=== PATIENT | female | born 2000 | race Caucasian/White ===

== ENCOUNTER → 2022-02-02 11:36 | Outpatient (BNVA) | payer SELFPAY | PROVIDERS: Family Provider Electrodiagnostic Medicine; PCP Family Medicine; Visit Provider Family Medicine | DX: Z51.81 Encounter for therapeutic drug level monitoring (principal); R30.0 Dysuria | CPT/HCPCS: 80053; 87086 ==

== ENCOUNTER → 2022-10-01 09:49 | Outpatient (BNVA) | payer SELFPAY | PROVIDERS: Family Provider Electrodiagnostic Medicine; PCP Family Medicine; Visit Provider Family Medicine | DX: R19.7 Diarrhea, unspecified (principal); D64.9 Anemia, unspecified; Z51.81 Encounter for therapeutic drug level monitoring; R30.0 Dysuria; K29.70 Gastritis, unspecified, without bleeding | CPT/HCPCS: 80053; 83540; 85025 ==

== ENCOUNTER → 2023-06-29 09:02 | Outpatient (BNVA) | payer BC, SELFPAY | PROVIDERS: Family Provider Electrodiagnostic Medicine; PCP Family Medicine; Visit Provider Family Medicine | DX: Z51.81 Encounter for therapeutic drug level monitoring (principal); E55.9 Vitamin D deficiency, unspecified; Z13.220 Encounter for screening for lipoid disorders; R53.81 Other malaise; R53.83 Other fatigue | CPT/HCPCS: 80053; 80061; 82306; 84443; 85025 ==

== ENCOUNTER → 2023-10-25 09:34 | Outpatient (BNVA) | payer MEDICAID, SELFPAY | PROVIDERS: Family Provider Electrodiagnostic Medicine; PCP Family Medicine; Referring Provider Family Medicine; Visit Provider Internal Medicine | DX: E28.2 Polycystic ovarian syndrome (principal); N94.6 Dysmenorrhea, unspecified; L70.9 Acne, unspecified; Z79.84 Long term (current) use of oral hypoglycemic drugs | CPT/HCPCS: 82627; 83036; 84403; 99204 ==

== ENCOUNTER 2023-11-14 08:27 | Outpatient (CLI) | payer MEDICAID, SELFPAY ==
--- NOTE | 2023-11-14 08:45 | US_ITS ---
WS: [id number] US pelvic complete* 31101 HISTORY: PCOS COMPARISON: None available. Uterus: 6.5 cm x 4.0 cm x 2.7 cm. Normal size anteverted uterus. No fibroid or mass. Endometrium: 0.6 cm. Normal. Right ovary: 2.4 cm x 2.0 cm x 2.5 cm. Normal size and vascularity, no cystic or solid masses. Left ovary: 2.9 cm x 1.7 cm x 2.2 cm. Normal size and vascularity, no cystic or solid masses. Small amount of fluid in the cul-de-sac to the RIGHT. May be a small amount of complex hemorrhage. US/US pelvic complete* 13498 IMPRESSION: 1. Patient refused transvaginal ultrasound imaging. Without transvaginal imagi ng sensitivity is decreased. 2. Ovaries are not enlarged. 3. Normal endometrium. 4. Small amount of complex free fluid in the cul-de-sac. May be from a rupture d ovarian cyst.
== END 2023-11-14 08:28 | disposition home or self-care (01) ==
LOC: RAD 08:27
PROVIDERS: Family Provider Electrodiagnostic Medicine; PCP Family Medicine; Visit Provider Internal Medicine
DX: E28.2 Polycystic ovarian syndrome (principal); N94.6 Dysmenorrhea, unspecified
CPT/HCPCS: 76856

== ENCOUNTER → 2024-07-03 10:28 | Outpatient (BNVA) | payer MEDICAID, SELFPAY | PROVIDERS: Family Provider Electrodiagnostic Medicine; PCP Family Medicine; Visit Provider Family Medicine | DX: Z51.81 Encounter for therapeutic drug level monitoring (principal); E55.9 Vitamin D deficiency, unspecified; R53.81 Other malaise; R53.83 Other fatigue | CPT/HCPCS: 80053; 82306; 83550; 85025 ==

== ENCOUNTER → 2024-09-24 11:27 | Outpatient (BNVA) | payer OTHER, MEDICAID, SELFPAY | PROVIDERS: Family Provider Electrodiagnostic Medicine; PCP Family Medicine; Referring Provider Family Medicine; Visit Provider Nurse Practitioner Women's Health | DX: Z12.4 Encounter for screening for malignant neoplasm of cervix (principal) | CPT/HCPCS: 88175 ==

== ENCOUNTER → 2024-10-04 13:27 | Outpatient (BNVA) | payer OTHER, MEDICAID, SELFPAY | PROVIDERS: Family Provider Electrodiagnostic Medicine; PCP Family Medicine; Visit Provider Nurse Practitioner Women's Health | DX: N83.202 Unspecified ovarian cyst, left side (principal) | CPT/HCPCS: 76830 ==

== ENCOUNTER → 2024-11-01 16:19 | Outpatient (BNVA) | payer OTHER, MEDICAID, SELFPAY | PROVIDERS: Family Provider Electrodiagnostic Medicine; PCP Family Medicine; Visit Provider Internal Medicine | DX: R53.81 Other malaise (principal); R53.83 Other fatigue | CPT/HCPCS: 83540 ==

== ENCOUNTER 2025-05-23 01:27 | Emergency (ER) | payer OTHER, MEDICAID, SELFPAY ==
[2025-05-23 01:32] VITALS: BP 118/81; PULSE 82; RESP 16; TEMP 36.4; O2SAT 100; BMI 32.4
--- OUTSIDE RECORDS SUMMARY | 2025-05-23 01:42 | XMS_ITS | Clinical Summary ---
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 Active Active Problems Problem Noted Date Diagnosed Date Dental impaction 12/06/2015 Lactose intolerance 03/17/2010 Allergic rhinitis 03/17/2010 Abdominal pain, generalized 03/17/2010 Obese 03/17/2010 Hives 09/02/2009 Asthma 09/02/2009 Eczema 09/02/2009 Immunizations Immunization Administration Dates Next Due Hepatitis A Vaccine Ped Adol IM 2 Dose [facility] 07/21 MMR Vaccine SQ [facility] 07/21/2009 Family History Medical History Relation Name Comments Healthy Father Healthy Maternal Grandfather Healthy Maternal Grandmother Healthy Mother Healthy Paternal Grandfather Heart Disease Paternal Grandmother Hypertension Paternal Grandmother Relation Name Status Comments Father Maternal Grandfather Maternal Grandmother Mother Paternal Grandfather Paternal Grandmother Social History Tobacco Use Types Packs/Day Years Used Date Smoking Tobacco: Never Alcohol Use Standard Drinks/Week Comments No 0 (1 standard drink = 0.6 oz pur e alcohol) Comments No Sex and Gender Information Value Date Recorded Sex Assigned at Not on file 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 Gender Identity Not on file Sexual Orientation Not on file Last Filed Vital Signs Vital Sign Reading Time Taken Comments Blood Pressure 126/76 02/06/2016 8:49 AM CDT Pulse 67 02/06/2016 8:49 AM CDT Temperature 36.2 C (97.1 F) 12/30/2010 8:11 AM CDT Respiratory Rate 18 12/30/2010 8:11 AM CDT Oxygen Saturation 100% 02/06/2016 8:49 AM CDT Inhaled Oxygen Concentration - - Weight 77.1 kg (170 lb) 02/06/2016 8:49 AM CDT Height 165.1 cm (5' 5 ) 12/04/2015 2:49 PM CDT Body Mass Index - - Plan of Treatment Health Maintenance Due Date Last Done Comments HPV VACCINES (1 - 3-dose series) 2015 DTAP/TDAP/TD VACCINES (1 - Tdap) 2019 HEPATITIS B VACCINES (1 of 3 - 19+ 3-dose series) 10/2018 CERVICAL CANCER SCREENING 2021 HPV/Cotest (21-29) 2021 PAP SMEAR 2021 INFLUENZA VACCINE (#1) 2025 Insurance [place] Member Subscriber Plan / Payer (Ef fective 2009-Present) Name:Larissa Mack Relation to Subscriber:Self Name:Larissa Mack Payer ID:[id number] Group ID:Not on file Type:Medicaid Address: [address] Member Subscriber Plan / Payer (Ef fective 2015-Present) Name:Larissa aMck Relation to Subscriber:Child Name:DARRELL TREJO Date of :1976 (Home) Address: [address] [place] [address] Payer ID:Not on file Type:Blue Cross Address: [address] MEDICAID [place] Member Subscriber Plan / Payer (Ef fective 2009-Present) Name:Larissa Mack Relation to Subscriber:Self Name:Larissa Mack Payer ID:[id number] Group ID:Not on file Type:Medicaid Address: [address] Member Subscriber Plan / Payer (Ef fective 2015-Present) Name:Larissa Mack Relation to Subscriber:Child Name:DARRELL TREJO Date of :1976 (Home) Address: [address] [place] [id number] Payer ID:Not on file Type:Blue Cross Address: [facility] [id number] [address] MEDICAID DENTAL
--- OUTSIDE RECORDS SUMMARY | 2025-05-23 01:42 | XMS_ITS | Clinical Summary ---
Author Organization [facility] Address [address] [place] [address] Dr. 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 12/04/2015 Active Active Problems Problem Noted Date Diagnosed Date Dental impaction 12/06/2015 Lactose intolerance 03/17/2010 Obese 03/17/2010 Abdominal pain, generalized 03/17/2010 Allergic rhinitis 03/17/2010 Hives 09/02/2009 Asthma 09/02/2009 Eczema 09/02/2009 Immunizations Immunization Administration Dates Next Due Hepatitis A Vaccine Ped Adol IM 2 Dose [facility] 07/21 MMR Vaccine SQ [facility] 07/21/2009 Family History Medical History Relation Name [...] = 0.6 oz pur e alcohol) Comments Unknown Sex and Gender Information Value Date Recorded Sex Assigned at Not on file 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
[2025-05-23 01:54] LABS: Hematocrit 36.4 % (36-47); Hemoglobin 11.90 g/dL (11.27-16.99); Mean Corpuscular HGB Conc 32.7 g/dL (30-55); Mean Corpuscular Hemoglobin 27.0 pg (27-33); Mean Corpuscular Volume 82.5 fl (85-98); Nucleated Red Blood Cells % 0 %; Platelet Count 302 10^3/cmm (157-399); Red Blood Count 4.41 10^6/uL (3.85-5.65); White Blood Count 8.94 10^3/uL (3.29-11.43)
[2025-05-23 02:21] LABS: Alanine Aminotransferase 13 U/L (0-33); Albumin Level 4.4 g/dL (3.5-5.2); Alkaline Phosphatase 62 U/L (35-105); Anion Gap 15.8 (5-19); Aspartate Amino Transferase 14 U/L (0-32); Blood Urea Nitrogen 12 mg/dL (6-20); Calcium 9.3 mg/dL (8.5-10.5); Carbon Dioxide 23 mmol/L (22-29); Chloride 102 mmol/L (98-107); Globulin 2.7 g/dL (1.3-4.6); Glucose 106 mg/dL (65-115); Osmolality Calculated 284 mOsm/kg (285-295); Potassium 3.8 mmol/L (3.5-5.1); Sodium 137 mmol/L (136-145); Total Protein 7.1 g/dL (6.6-8.7)
[2025-05-23] MEDS: ondansetron 2 mg/ML SDV 2 mL 4 MG IVP (02:40)
--- NOTE | 2025-05-23 02:42 | W.ED.PREGNAN ---
HPI - General: Chief complaint: OB/Uterine Contractions Stated complaint: 5 Wks Preg\Cramping Time Seen by Provider: 05/23/25 01:34 History of Present Illness: 24-year-old female presents emergency room she is at estimated 5 weeks gestation. She is having intense crampy pelvic cramping and pain no vaginal discharge or bleeding lasted for about 20 minutes its resolved she has not had any further problems. She had some light spotting a few days when she first found she is but no recurrences Associated symptoms: Deny abdominal pain or dysuria Related Data Home Medications ?Medication ?Instructions ?Recorded ?Confirmed omeprazole 20 mg capsule,delayed 20 mg PO DAILY 02/14/22 10/15/24 release Previous Rx's ?Medication ?Instructions ?Recorded ferrous sulfate 325 mg (65 mg 325 mg PO DAILY #30 tabs 03/23/22 iron) tablet cholecalciferol (vitamin D3) 25 25 mcg PO DAILY #30 tabs 06/30/23 mcg (1,000 unit) tablet potassium chloride 10 mEq 10 meq PO DAILY #30 tabs 06/30/23 tablet,extended release (Klor-Con) cetirizine 10 mg tablet (Zyrtec) 10 mg PO DAILY #30 tabs 02/25/24 fluticasone propionate 50 2 spray intranasal DAILY #16 grams 02/25/24 mcg/actuation nasal spray,suspension (Flonase Allergy Relief) cholecalciferol (vitamin D3) 50 50 mcg PO DAILY #30 caps 07/12/24 mcg (2,000 unit) capsule nitrofurantoin 100 mg PO Q12H 7 days #14 caps 03/11/25 monohydrate/macrocrystals 100 mg capsule (Macrobid) ondansetron HCl 4 mg tablet 4 mg PO Q8H PRN nausea and 04/23/25 vomiting #30 tabs promethazine 25 mg tablet 25 mg PO Q6H PRN nausea and 05/23/25 vomiting #20 tabs Allergies Allergy/AdvReac Type Severity Reaction Status Date / Time No Known Allergies Allergy Verified 09/24/24 09:52 Review of Systems Const: Denies: fever(s) or chills Card: Denies: chest pain Resp: Denies: dyspnea GI: Denies: abdominal pain : Denies: dysuria, urinary frequency or urinary urgency Musc: Denies: neck pain or back pain Skin/Breast: Denies: rash PFSH ED PFSH: Medical History Anxiety Surgical History No pertinent past surgical history Family History Denies family history of Colon cancer Ovarian cancer Diabetes Breast cancer Hypertension Uterine cancer Thyroid disease Stroke Social History Smoking and tobacco/nicotine status: never used tobacco/nicotine Alcohol intake: never Substance/Drug Use: never Additional social history: 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 Physical Exam Const: ORIENTATION/CONSCIOUSNESS: Yes awake HENMT: COMMON NORMALS: normocephalic, atraumatic and hearing grossly normal bilaterally HEAD & SCALP: normocephalic and atraumatic Resp: COMMON NORMALS: normal respiratory effort, No retractions, No use of accessory muscles and clear to auscultation bilaterally AUSCULTATION: clear to auscultation bilaterally Cardio: COMMON NORMALS: regular rate, regular rhythm and No murmurs present (Cardio) RATE: regular rate RHYTHM: regular rhythm GI: COMMON NORMALS: Soft to palpation and No hepatosplenomegaly present AUSCULTATION: Yes normoactive bowel sounds PALPATION: Yes Soft to palpation, No Tenderness to palpation present (GI), No Guarding due to palpation present (GI) and Yes No hepatosplenomegaly present Extremity: COMMON NORMALS: normal to inspection, capillary refill normal, no clubbing, cyanosis or edema, no calf tenderness and no pedal edema Skin: COMMON NORMALS: no rashes or lesions noted GENERAL SKIN EXAM: no rashes or lesions noted Course Vital Signs: Vital signs: Vital Signs Temperature 97.6 F 05/23/25 01:32 Pulse Rate 82 05/23/25 01:32 Respiratory Rate 16 05/23/25 01:32 Blood Pressure 118/81 05/23/25 01:32 Pulse Oximetry 100 05/23/25 01:32 Oxygen Delivery Me thod Room Air 05/23/25 01:32 MDM - OB/Uterine Contractions Medical Decision Making Medical decision making Social determinants: Good spousal support, spouse present at the visit with her I reviewed the patient's medical record. I reviewed the patient's current home meds Alternate historians: None Differential diagnosis: Cystitis miscarriage from ligament pain pelvic cramping of Lab Review: Labs reviewed beta-hCG as anticipated. No other significant findings noted. Imaging: None Assessment of risk: Level of risk: Low Hospitalization considerations: No emergent condition requiring consideration for hospitalization Reexamination: Stable patient states symptoms have resolved Assessment and plan: Cramping typical of early . No cystitis no significant vaginal bleeding. Recommend continue to follow-up with her OB as an outpatient return if develops dysuria urgency or frequency or vaginal bleeding Lab Data 05/23/25 01:44 05/23/25 01:44 Laboratory Results WBC 8.94 10^3/uL (3.29-11.43) 05/23/25 01:44 RBC 4.41 10^6/uL (3.85-5.65) 05/23/25 01:44 Hgb 11.90 g/dL (11.27-16.99) 05/23/25 01:44 Hct 36.4 % (36-47) 05/23/25 01:44 MCV 82.5 fl (85-98) L 05/23/25 01:44 MCH 27.0 pg (27-33) 05/23/25 01:44 MCHC 32.7 g/dL (30-55) 05/23/25 01:44 RDW 13.3 % (12.1-15.1) 05/23/25 01:44 Plt Count 302 10^3/cmm (157-399) 05/23/25 01:44 MPV 9.2 fL (7.4-10.4) 05/23/25 01:44 Neut % (Auto) 40.5 % 05/23/25 01:44 Lymph % (Auto) 50.4 % 05/23/25 01:44 [place] % (Auto) 7.3 % 05/23/25 01:44 Eos % (Auto) 1.2 % 05/23/25 01:44 Baso % (Auto) 0.4 % 05/23/25 01:44 Neut # (Auto) 3.61 10^3/uL (1.8-7.7) 05/23/25 01:44 Lymph # (Auto) 4.5 10^3/uL (0.8-4.8) 05/23/25 01:44 [place] # (Auto) 0.7 10^3/uL (0.2-0.9) 05/23/25 01:44 Eos # (Auto) 0.1 10^3/uL (0.0-0.8) 05/23/25 01:44 Baso # (Auto) 0.0 10^3/uL (0.0-0.1) 05/23/25 01:44 Nucleated RBC % (auto) 0 % 05/23/25 01:44 Nucleated RBCs # 0.0 /100WBC 05/23/25 01:44 Sodium 137 mmol/L (136-145) 05/23/25 01:44 Potassium 3.8 mmol/L (3.5-5.1) 05/23/25 01:44 Chloride 102 mmol/L (98-107) 05/23/25 01:44 Carbon Dioxide 23 mmol/L (22-29) 05/23/25 01:44 Anion Gap 15.8 (5-19) 05/23/25 01:44 BUN 12 mg/dL (6-20) 05/23/25 01:44 Creatinine 0.5 mg/dL (0.5-0.9) 05/23/25 01:44 GFR Calculation 151.6 mL/min (90-130) H 05/23/25 01:44 Glucose 106 mg/dL (65-115) 05/23/25 01:44 Calculated Osmolality 284 mOsm/kg (285-295) L 05/23/25 01:44 Calcium 9.3 mg/dL (8.5-10.5) 05/23/25 01:44 Total Bilirubin 0.3 mg/dL (0.15-1.2) 05/23/25 01:44 AST 14 U/L (0-32) 05/23/25 01:44 ALT 13 U/L (0-33) 05/23/25 01:44 Alkaline Phosphatase 62 U/L (35-105) 05/23/25 01:44 Total Protein 7.1 g/dL (6.6-8.7) 05/23/25 01:44 Albumin 4.4 g/dL (3.5-5.2) 05/23/25 01:44 Globulin 2.7 g/dL (1.3-4.6) 05/23/25 01:44 Ser , Semi-Qnt 3984.00 mIU/mL 05/23/25 01:44 Urine Color Yellow (Yellow) 05/23/25 02:44 Urine Appearance Clear (CLEAR) 05/23/25 02:44 Urine pH 6.0 (5-7) 05/23/25 02:44 Ur Specific [place] 1.027 (1.005-1.030) 05/23/25 02:44 Urine Protein Trace (Negative) A 05/23/25 02:44 Urine Glucose (UA) Negative (Normal) 05/23/25 02:44 Urine Ketones Trace (Negative) 05/23/25 02:44 Urine Blood 1+ (Negative) A 05/23/25 02:44 Urine Nitrate Negative (Negative) 05/23/25 02:44 Urine Bilirubin Negative (Negative) 05/23/25 02:44 Urine Urobilinogen 1.0 mg/dL (Negative) 05/23/25 02:44 Ur Leukocyte Esterase Negative (Negative) 05/23/25 02:44 Urine RBC 11-20 /hpf (0-2) H 05/23/25 02:44 Urine WBC 0-5 /hpf (0-5) 05/23/25 02:44 Ur Squamous Epith Cells 0-5 /hpf (0-5) 05/23/25 02:44 Amorphous Sediment Not Reportable 05/23/25 02:44 Urine Bacteria None seen /hpf (NONE) 05/23/25 02:44 Hyaline Casts 0.81 /lpf 05/23/25 02:44 Urine Mucus 1+ /hpf 05/23/25 02:44 Rho(D) Type Rh positive 05/23/25 01:44 No radiology studies performed this visit Discharge Plan Discharge Patient Disposition: Home Clinical Impression: Pelvic cramping in antepartum period, First trimester Condition: Stable Prescriptions: New promethazine 25 mg tablet 25 mg PO Q6H PRN (Reason: nausea and vomiting) Qty: 20 0RF No Action omeprazole 20 mg capsule,delayed release(DR/EC) 20 mg PO DAILY fluticasone propionate [Flonase Allergy Relief] 50 mcg/actuation spray,suspension 2 spray intranasal DAILY Qty: 16 0RF Rx Instructions: administer into each nostril cetirizine [Zyrtec] 10 mg tablet 10 mg PO DAILY Qty: 30 0RF ferrous sulfate 325 mg (65 mg iron) tablet 325 mg PO DAILY Qty: 30 6RF potassium chloride [Klor-Con 10] 10 mEq tablet extended release 10 meq PO DAILY Qty: 30 6RF cholecalciferol (vitamin D3) 25 mcg (1,000 unit) tablet 25 mcg PO DAILY Qty: 30 6RF cholecalciferol (vitamin D3) 50 mcg (2,000 unit) capsule 50 mcg PO DAILY Qty: 30 6RF nitrofurantoin monohyd/m-cryst [Macrobid] 100 mg capsule 100 mg PO Q12H 7 Days Qty: 14 0RF Rx Instructions: must administer with a meal/food ondansetron HCl 4 mg tablet 4 mg PO Q8H PRN (Reason: nausea and vomiting) Qty: 30 3RF Discharge Orders: Discharge ED (Routine); Ordered 05/23/25 Ordered By: Shay Schmid Referrals: Fitz Amador MD [Primary Care Provider, Family Practice] Discharge Diet: Usual diet Discharge Activity: Resume usual activity Patient Instructions: Opioid Safety, Pain Management, Patient Portal & Arina Instructions Activity Restrictions/Additional Instructions: Thank you for choosing [facility] for your healthcare needs today. It is very important that you follow up as instructed or that you return to the Emergency Department should you have concerns or if your condition changes or worsens in any way. Emergency department visits are focused on emergent conditions, in some cases you may require further evaluation on an outpatient basis. You were seen emergency room with a complaint of pelvic cramping. Your laboratory tests are unremarkable no sign of UTI. Beta-hCG is appropriate for estimated gestational age. Follow-up with your OB as planned. You did mention you occasionally to get nausea with this you are given a prescription for promethazine to use as needed at home. Return if you have further symptoms or begin develop vaginal bleeding discharge dysuria urgency or frequency. (Please note that included in your discharge packet is information concerning opioid safety and pain management. This information is given to all patients were discharged from the ER regardless of their discharge diagnosis or the medicines they usually take or are prescribed.) Print Language: Bulgarian Coding Level of Care Code ED Liner Checker for Giovanni Edmondson
[2025-05-23 02:57] LABS: Glucose Urine UA Negative (Normal); Nitrate Urine Negative (Negative); Specific Gravity, Urine 1.027 (1.005-1.030)
[2025-05-23 03:02] LABS: Add Urine Microscopic? YES
[2025-05-23 03:40] LABS: UA Slide Review UA Slide Review Perf
[2025-05-23 03:55] VITALS: BP 107/67; PULSE 78; RESP 16; O2SAT 98
== END 2025-05-23 03:57 | disposition home or self-care (01) ==
PROVIDERS: Emergency Provider Family Medicine; PCP Family Medicine
DX: O26.891 Other specified pregnancy related conditions, first trimester (principal); R10.9 Unspecified abdominal pain; Z3A.01 Less than 8 weeks gestation of pregnancy
CPT/HCPCS: 36415; 80053; 81001; 84702; 85025; 96374; 99284; J2405; J7030

== ENCOUNTER → 2025-06-06 08:23 | Outpatient (BNVA) | payer OTHER, SELFPAY | PROVIDERS: Family Provider Electrodiagnostic Medicine; PCP Family Medicine; Visit Provider Obstetrics & Gynecology | DX: N92.6 Irregular menstruation, unspecified (principal); Z34.00 Encounter for supervision of normal first pregnancy, unspecified trimester | CPT/HCPCS: 81025 ==